=== PATIENT | female | born 1960 | race African-American/Black ===

== ENCOUNTER 2018-10-26 12:55 | Outpatient (CLI) | payer BC ==
--- NOTE | 2018-10-26 14:43 | RAD ---
XR Elbow Rt 4 View STANDARD HISTORY: Right elbow pain after lifting heavy boxes COMPARISON: None. FINDINGS: There are mild arthritic changes present with spurring of the coronoid process. No joint ef fusion or fracture. IMPRESSION: Mild arthritic changes of the elbow.
== END 2018-10-26 12:56 | disposition home or self-care (01) ==
LOC: BICRAD 12:55
PROVIDERS: ATTEND Nurse Practitioner Family
DX: M25.521 Pain in right elbow (principal); M19.021 Primary osteoarthritis, right elbow

== ENCOUNTER 2020-06-24 19:36 | Emergency (ER) | payer OTHER ==
[~2020-06-24 19:36] MED LIST: Iopamidol-370 76% 500 ML 1 ML ONE
[2020-06-24] MEDS ORDERED: Ondansetron PF 4 MG/2 ML Vial ONE (21:01)
== END 2020-06-24 22:58 | disposition home or self-care (01) ==
LOC: ERS 19:36
DX: R10.31 Right lower quadrant pain (principal); R11.2 Nausea with vomiting, unspecified
CPT/HCPCS: 36415; 74177; 80053; 81003; 81015; 82270; 83605; 83690; 85025; 93005; 94760; 96374; J2405; Q9967

== ENCOUNTER 2021-01-02 09:58 | Emergency (ER) | payer OTHER ==
[2021-01-02] MEDS ORDERED: Ketorolac Tromethamine 30 MG/ML VIAL ONE (10:22)
== END 2021-01-02 11:49 | disposition home or self-care (01) ==
LOC: ERS 09:58
DX: M62.838 Other muscle spasm (principal); R73.03 Prediabetes; Z79.84 Long term (current) use of oral hypoglycemic drugs
CPT/HCPCS: 96372; J1885